=== PATIENT | female | born 1960 | race Caucasian/White ===

== ENCOUNTER 2017-06-20 17:40 | Emergency (ER) | payer MEDICARE ==
[2017-06-20 18:25] LABS: #Eosinphils 0.1 thou/uL (0.0-0.7); #Lymphocytes 1.4 thou/uL (1.20-3.40); #Monocytes 0.7 thou/uL (0.11-0.59); #Neutrophils 4.6 thou/uL (1.40-6.50); %Basophils 0.6 % (0.0-1.0); %Eosinophils 2.1 % (0.0-10.0); %Lymphocytes 20.7 % (21.0-51.0); %Monocytes 10.2 % (0.0-10.0); %Neutrophils 66.3 % (42.0-75.0); Mean Corpuscular HGB CONC 32.5 g/dL (32.0-36.0); Mean Corpuscular Hemoglobin 28.2 pg (27.0-31.0); Mean Corpuscular Volume 86.5 fl (81.0-99.0); Mean Platelet Volume 7.9 fL (7.4-10.4); Platelet Count 298 thou/uL (130-400); RBC Distribution Width 13.8 % (11.5-14.5); Red Blood Cell (RBC) Count 4.97 mill/uL (4.20-5.40)
[2017-06-20 18:47] LABS: ALT (SGPT) 11 U/L (8-55); AST (SGOT) 19 U/L (5-34); Albumin 3.9 g/dL (3.5-5.0); Alkaline Phosphatase 101 U/L (40-150); Anion Gap 13 mmol/L (10-20); BUN (Urea Nitrogen) 9 mg/dL (9.8-20.1); Bilirubin, Total 0.5 mg/dL (0.2-1.2); Calc. Creatinine Clearance 0 mL/min (70-130); Calcium 8.9 mg/dL (7.8-10.44); Carbon Dioxide 25 mmol/L (22-29); Chloride 105 mmol/L (98-107); Estimated GFR-MDRD 79; Globulin 3.4 g/dL (2.4-3.5); Glucose 79 mg/dL (70-105); Potassium 4.2 mmol/L (3.5-5.1); Protein, Total 7.3 g/dL (6.0-8.3); Sodium 139 mmol/L (136-145)
[2017-06-20] MEDS ORDERED: Phenergan/Codeine 10-6.25mg/5ml UDCUP PO SCH (19:15)
[2017-06-20] MEDS ORDERED: Magnesium Sulfate 2 GM/100 ML BAG ONE (19:18)
[2017-06-20] MEDS ORDERED: methylPREDNISolone Sod Succ/PF 125 MG/2 ML VIAL ONE (19:18)
[2017-06-20] MEDS ORDERED: Lorazepam 2 MG/ML VIAL ONE (19:18)
--- NOTE | 2017-06-20 19:27 | RAD ---
FRONTAL VIEW CHEST 06/20/17 No prior comparison. CLINICAL HISTORY: Short of breath new onset. FINDINGS: There is elevation of the right hemidiaphragm. No lobar consolidation, effusion, or pneumothorax. The cardiac silhouette is accentuated by portable technique. IMPRESSION: No focal consolidation. POS: [facility]
--- NOTE | 2017-06-28 17:05 | EKG ---
Test Reason : Blood Pressure : / mmHG Vent. Rate : 094 BPM Atrial Rate : 094 BPM P-R Int : 144 ms QRS Dur : 080 ms QT Int : 358 ms P-R-T Axes : 065 064 065 degrees QTc Int : 447 ms Normal sinus rhythm Normal ECG Confirmed by KELLY WILSON D.O. ([id number]), art editor LUIS ALBERTO WARD ([id number] on 06/28/2017 5:04:17 PM Referred By: Confirmed By:KELLY WILSON D.O.
== END 2017-06-20 21:44 | disposition home or self-care (01) ==
LOC: ERS 17:40
DX: J45.901 Unspecified asthma with (acute) exacerbation (principal); E03.9 Hypothyroidism, unspecified; E66.9 Obesity, unspecified; F32.9 Major depressive disorder, single episode, unspecified; F41.9 Anxiety disorder, unspecified; Z71.6 Tobacco abuse counseling; F17.210 Nicotine dependence, cigarettes, uncomplicated; I10 Essential (primary) hypertension; M48.00 Spinal stenosis, site unspecified
CPT/HCPCS: 71045; 80053; 85025; 87040; 93005; 94640; 94760; 96365; 96375; 99406; J2060; J2930; J3475; J7620

== ENCOUNTER 2017-07-13 16:36 | Emergency (ER) | payer MEDICARE ==
--- NOTE | 2017-07-13 17:51 | RAD ---
PA AND LATERAL CHEST: History: Dyspnea, cough, shortness of breath. FINDINGS: Comparison is made with the exam of 18. The heart size is normal. The lungs are expanded without confluent areas of consolidation, pneumothor aces or pleural effusions. No acute osseous abnormalities are seen. IMPRESSION: No radiographic evidence of acute cardiopulmonary process. POS: [facility]
[2017-07-13] MEDS ORDERED: traMADol HCl 50 MG TAB ONE (18:30)
== END 2017-07-13 18:48 | disposition home or self-care (01) ==
LOC: ERS 16:36
DX: J45.909 Unspecified asthma, uncomplicated (principal); I10 Essential (primary) hypertension; E03.9 Hypothyroidism, unspecified; E66.9 Obesity, unspecified; F41.9 Anxiety disorder, unspecified; F32.9 Major depressive disorder, single episode, unspecified; F17.210 Nicotine dependence, cigarettes, uncomplicated; Z79.891 Long term (current) use of opiate analgesic; Z79.899 Other long term (current) drug therapy
CPT/HCPCS: 71046

== ENCOUNTER 2017-07-23 09:00 | Outpatient (CLI) | payer MEDICARE | END 2017-07-23 09:01 | disposition home or self-care (01) | LOC: BICRAD 09:00 | PROVIDERS: ATTEND Family Medicine | DX: M25.552 Pain in left hip (principal); R10.11 Right upper quadrant pain; J44.9 Chronic obstructive pulmonary disease, unspecified; R05 Cough | CPT/HCPCS: 71046; 72170 ==

== ENCOUNTER 2017-11-09 21:47 | Emergency (ER) | payer MEDICARE ==
[2017-11-09 22:42] LABS: Bilirubin Negative (Negative); Blood, Urine Negative (Negative); Clarity CLOUDY (Clear); Glucose, Urine (Dipstick) Negative (Negative); Leukocyte Negative (Negative); Nitrite Negative (Negative); Protein, Urine (Dipstick) Negative (Neg-Trace); Specific Gravity, Urine 1.025 (1.002-1.036); pH, Urine 5.5 (5.0-9.0)
[2017-11-09 22:49] LABS: Amphetamine Not Detected (NotDetected); Barbiturates Screen Not Detected (NotDetected); Benzodiazepine Screen Detected (NotDetected); Cocaine Metabolite Screen Not Detected (NotDetected); Medtox Control Line Valid? VALID (VALID); Medtox Reader # READER 1; Methadone Not Detected (NotDetected); Methamphetamine Not Detected (NotDetected); Opiate Screen Detected (NotDetected); Oxycodone Screen Not Detected (NotDetected); Phencyclidine (PCP) Not Detected (NotDetected); THC/Cannabinoid Screen Not Detected (NotDetected); Tricyclic Screen Not Detected (NotDetected)
[2017-11-09 23:08] LABS: #Basophils 0.1 thou/uL (0.0-0.2); #Eosinphils 0.1 thou/uL (0.0-0.7); #Lymphocytes 2.6 thou/uL (1.20-3.40); #Monocytes 0.5 thou/uL (0.11-0.59); #Neutrophils 3.9 thou/uL (1.40-6.50); %Basophils 1.1 % (0.0-1.0); %Eosinophils 1.5 % (0.0-10.0); %Lymphocytes 35.8 % (21.0-51.0); %Neutrophils 54.6 % (42.0-75.0); Hemoglobin 14.5 g/dL (12.0-16.0); Mean Corpuscular HGB CONC 33.5 g/dL (32.0-36.0); Mean Corpuscular Hemoglobin 28.8 pg (27.0-31.0); Mean Corpuscular Volume 85.9 fL (78.0-98.0); Mean Platelet Volume 7.8 fL (7.4-10.4); Platelet Count 310 thou/uL (130-400); RBC Distribution Width 12.4 % (11.5-14.5); Red Blood Cell (RBC) Count 5.05 mill/uL (4.20-5.40); White Blood Cell (WBC) Count 7.2 thou/uL (4.8-10.8)
[2017-11-09 23:26] LABS: ALT (SGPT) 10 U/L (8-55); AST (SGOT) 18 U/L (5-34); Acetaminophen Less than 6.0 mcg/mL (10.0-30.0); Albumin 4.1 g/dL (3.5-5.0); Alcohol Less than 10 mg/dL (Less than 10); Alkaline Phosphatase 95 U/L (40-150); Anion Gap 13 mmol/L (10-20); BUN (Urea Nitrogen) 11 mg/dL (9.8-20.1); Bilirubin, Total 0.2 mg/dL (0.2-1.2); CK (CPK) 112 U/L (29-168); Calc. Creatinine Clearance 0 mL/min (70-130); Calcium 9.2 mg/dL (7.8-10.44); Carbon Dioxide 25 mmol/L (22-29); Chloride 107 mmol/L (98-107); Estimated GFR-MDRD 79; Globulin 3.4 g/dL (2.4-3.5); Glucose 105 mg/dL (70-105); Protein, Total 7.5 g/dL (6.0-8.3); Salicylate Less than 8.0 mg/dL (15.0-30.0); Sodium 141 mmol/L (136-145)
[2017-11-09] MEDS ORDERED: Morphine 10 MG/ML VIAL ONE (23:48)
--- NOTE | 2017-11-09 23:50 | CT ---
CT LUMBAR SPINE WITHOUT CONTRAST: Comparison: None. History: Low back pain. Right hip pain. Technique: Multiple contiguous axial images were obtained in a CT of the lumbar spine without contras t. Sagittal and coronal reformats were performed. FINDINGS: The prevertebral soft tissues are unremarkable. There are post-surgical changes in the lower lumbar s pine from laminectomies at L3-4 and L4-5. There is moderate posterior facet arthrosis in the lower teresa mbosacral spine. There is intervertebral disc space narrowing at L5-S1 with surrounding endplate dege nerative changes and vacuum phenomenon. There is no evidence of acute fracture or subluxation. There is mild bony narrowing of the central canal at L5-S1. There is moderate bony narrowing of the n eural foramina at L4-5 and L5-S1. IMPRESSION: 1. Post-surgical and degenerative changes of the lumbar spine without acute osseous abnormality. Plea se note that MRI is a much better modality for evaluation of the nerve roots and central canal as wel l as disc bulging. POS: [facility]
[2017-11-10] MEDS ORDERED: Dexamethasone 10 MG/ML VIAL ONE (00:33)
[2017-11-10] MEDS ORDERED: Ketorolac Tromethamine 60 MG/2 ML VIAL ONE (05:11)
--- NOTE | 2017-11-10 09:05 | MRI ---
PRELIMINARY REPORT/[facility]/EMERGENTY AFTER-HOURS PROCEDURE MR Lumbar Spine Without Intravenous Contrast CLINICAL HISTORY: 57 years old, female; Pain; Low back pain; Prior surgery; Surgery date: 6+ months; Patient HX: Right hip, bilateral leg pain TECHNIQUE: Magnetic resonance images of the lumbar spine without intravenous contrast in multiple planes. COMPARISON: No relevant prior studies available. FINDINGS: Vertebrae: Patient is post lumbar spine surgery with posterior decompression of the lower lumbar spin e. Spinal cord: Normal. Normal signal. Soft tissues: There is subcutaneous posterior back edema from prior intervention DISCS/SPINAL CANAL/NEURAL FORAMINA: L1-L2: Normal. No significant disc disease. No stenosis. L2-L3: Normal. No significant disc disease. No stenosis. L3-L4: At L3-L4 there is a mild disc bulge resulting in mild RIGHT neural foraminal narrowing. L4-L5: At L4-5 there is a broadbase disc bulge resulting in mild bilateral neuroforaminal narrowing. L5-S1: At L5 S1 there is a broad-based disc bulge resulting in mild spinal canal and neural foraminal narrowing. IMPRESSION: Mild multilevel lumbar spine degenerative changes most pronounced at L5 S1. Thank you for allowing us to participate in the care of your patient. Dictated and Authenticated by: Omar Connell MD 11/10/2017 2:43 AM Central Time ([place] & [place]) FINAL REPORT MRI LUMBAR SPINE NONCONTRAST PERFORMED ON AN EMERGENCY BASIS: Date: 11/10/17 Time: 0103 hours FINDINGS/IMPRESSION: Findings agree with the preliminary report by Franc[facility]. No evidence of significant compression of the con us medullaris. Prominent degenerative changes are present, including significant bilateral foraminal stenoses. POS: [facility]
== END 2017-11-10 05:55 | disposition home or self-care (01) ==
LOC: ERS 21:47
DX: M25.562 Pain in left knee (principal); M25.561 Pain in right knee; M54.5 Low back pain; M25.552 Pain in left hip; M25.551 Pain in right hip; J44.9 Chronic obstructive pulmonary disease, unspecified; I10 Essential (primary) hypertension; E03.9 Hypothyroidism, unspecified; E66.9 Obesity, unspecified; K21.9 Gastro-esophageal reflux disease without esophagitis; F41.9 Anxiety disorder, unspecified; F32.9 Major depressive disorder, single episode, unspecified; F17.210 Nicotine dependence, cigarettes, uncomplicated; Z79.899 Other long term (current) drug therapy
CPT/HCPCS: 36415; 72131; 72148; 80053; 80306; 80307; 81003; 82550; 84443; 85025; 85652; 86140; 96372; J1100; J1885; J2270

== ENCOUNTER 2018-07-10 18:11 | Emergency (ER) | payer MEDICARE ==
[2018-07-10] MEDS ORDERED: Ketorolac Tromethamine 30 MG/ML VIAL ONE ×3 (18:55→22:27)
[2018-07-10] MEDS ORDERED: Morphine 4 MG/ML VIAL ONE (18:55)
--- NOTE | 2018-07-10 20:06 | RAD ---
RIGHT FORELEG FOUR VIEWS: 07/10/18 INDICATION: Right leg pain after fall. COMPARISON: None. FINDINGS: No acute fracture or subluxation is evident. IMPRESSION: No acute osseous abnormality. POS: [facility]
[2018-07-10 20:12] LABS: #Basophils 0.1 thou/uL (0.0-0.2); #Eosinphils 0.1 thou/uL (0.0-0.7); #Monocytes 0.4 thou/uL (0.11-0.59); %Basophils 0.9 % (0.0-1.0); %Eosinophils 1.7 % (0.0-10.0); %Lymphocytes 26.7 % (21.0-51.0); %Monocytes 5.4 % (0.0-10.0); %Neutrophils 65.4 % (42.0-75.0); Hemoglobin 14.3 g/dL (12.0-16.0); Mean Corpuscular HGB CONC 32.6 g/dL (32.0-36.0); Mean Corpuscular Hemoglobin 28.9 pg (27.0-31.0); Mean Corpuscular Volume 88.5 fL (78.0-98.0); Mean Platelet Volume 7.9 fL (7.4-10.4); Platelet Count 295 thou/uL (130-400); RBC Distribution Width 12.6 % (11.5-14.5); Red Blood Cell (RBC) Count 4.94 mill/uL (4.20-5.40); White Blood Cell (WBC) Count 7.6 thou/uL (4.8-10.8)
[2018-07-10 20:19] LABS: INR-International Normal Ratio 0.9; PTT 34.8 SEC (22.9-36.1); Prothrombin Time 12.2 SEC (12.0-14.7)
[2018-07-10 20:20] LABS: D-Dimer Test 0.42 *mcg/mL (0.27-0.43)
[2018-07-10 20:29] LABS: ALT (SGPT) 15 U/L (8-55); AST (SGOT) 20 U/L (5-34); Albumin 4.3 g/dL (3.5-5.0); Alkaline Phosphatase 95 U/L (40-150); Anion Gap 14 mmol/L (10-20); BUN (Urea Nitrogen) 16 mg/dL (9.8-20.1); Bilirubin, Total 0.4 mg/dL (0.2-1.2); CK (CPK) 162 U/L (29-168); Calc. Creatinine Clearance 0 mL/min (70-130); Calcium 9.3 mg/dL (7.8-10.44); Carbon Dioxide 25 mmol/L (22-29); Chloride 104 mmol/L (98-107); Estimated GFR-MDRD 59; Globulin 3.3 g/dL (2.4-3.5); Glucose 111 mg/dL (70-105); Magnesium 2.6 mg/dL (1.6-2.6); Potassium 3.9 mmol/L (3.5-5.1); Protein, Total 7.6 g/dL (6.0-8.3); Sodium 139 mmol/L (136-145)
[2018-07-10 20:51] LABS: Bilirubin Small (Negative); Blood, Urine Negative (Negative); Clarity CLEAR (Clear); Glucose, Urine (Dipstick) Negative (Negative); Leukocyte Negative (Negative); Nitrite Negative (Negative); Protein, Urine (Dipstick) Negative (Neg-Trace); Specific Gravity, Urine 1.026 (1.002-1.036)
--- NOTE | 2018-07-10 21:48 | ULT ---
DOPPLER VENOUS ULTRASOUND OF THE RIGHT LOWER EXTREMITY: 07/10/18 INDICATION; Right knee pain. COMPARISON: None. TECHNIQUE: Hobson scale, color doppler and vascular duplex with spectral analysis was performed of the deep venous structures of the right lower extremity. Common femoral vein, superficial femoral vein, popliteal ve in, posterior tibial vein, proximal greater saphenous and profunda veins were assessed. FINDINGS: Normal compression, flow, and augmentation seen within the deep venous structures of the right knee. There is incidental note of a joint effusion within the suprapatellar pouch of the right knee. IMPRESSION: 1. No evidence of DVT to the right lower extremity. 2. Joint effusion within the right knee. POS: [facility]
[2018-07-10] MEDS ORDERED: HYDROcodone/Acetaminophen 10/325 mg Tablet ONE (22:27)
== END 2018-07-10 20:43 | disposition home or self-care (01) ==
LOC: ERS 18:11
DX: B02.9 Zoster without complications (principal); J44.9 Chronic obstructive pulmonary disease, unspecified; I10 Essential (primary) hypertension; E03.9 Hypothyroidism, unspecified; E66.9 Obesity, unspecified; K21.9 Gastro-esophageal reflux disease without esophagitis; F41.9 Anxiety disorder, unspecified; F32.9 Major depressive disorder, single episode, unspecified; F17.210 Nicotine dependence, cigarettes, uncomplicated; Z79.899 Other long term (current) drug therapy
CPT/HCPCS: 80053; 81003; 82550; 83735; 85025; 85379; 85610; 85730; 96374; 96375; 96376; J1885; J2270

== ENCOUNTER 2018-11-20 15:04 | Emergency (ER) | payer MEDICARE ==
[2018-11-20] MEDS ORDERED: Ondansetron PF 4 MG/2 ML Vial ONE (17:48)
[2018-11-20] MEDS ORDERED: Ketorolac Tromethamine 30 MG/ML VIAL ONE (17:48)
[2018-11-20 18:00] LABS: #Basophils 0.1 thou/uL (0.0-0.2); #Eosinphils 0.1 thou/uL (0.0-0.7); #Lymphocytes 2.5 thou/uL (1.20-3.40); #Monocytes 0.5 thou/uL (0.11-0.59); #Neutrophils 4.7 thou/uL (1.40-6.50); %Basophils 0.9 % (0.0-1.0); %Eosinophils 1.3 % (0.0-10.0); %Lymphocytes 31.4 % (21.0-51.0); %Monocytes 6.3 % (0.0-10.0); %Neutrophils 60.1 % (42.0-75.0); Hemoglobin 14.9 g/dL (12.0-16.0); Mean Corpuscular HGB CONC 33.5 g/dL (32.0-36.0); Mean Corpuscular Hemoglobin 30.1 pg (27.0-31.0); Mean Corpuscular Volume 89.9 fL (78.0-98.0); Mean Platelet Volume 8.4 fL (7.4-10.4); Platelet Count 255 thou/uL (130-400); RBC Distribution Width 12.1 % (11.5-14.5); Red Blood Cell (RBC) Count 4.94 mill/uL (4.20-5.40); White Blood Cell (WBC) Count 7.8 thou/uL (4.8-10.8)
[2018-11-20] MEDS ORDERED: Ketorolac Tromethamine 60 MG/2 ML VIAL ONE (18:12)
[2018-11-20 18:22] LABS: ALT (SGPT) 16 U/L (8-55); AST (SGOT) 23 U/L (5-34); Albumin 4.5 g/dL (3.5-5.0); Alkaline Phosphatase 92 U/L (40-150); Anion Gap 15 mmol/L (10-20); BUN (Urea Nitrogen) 12 mg/dL (9.8-20.1); Bilirubin, Total 0.5 mg/dL (0.2-1.2); CK (CPK) 210 U/L (29-168); Calc. Creatinine Clearance 0 mL/min (70-130); Calcium 9.7 mg/dL (7.8-10.44); Carbon Dioxide 23 mmol/L (22-29); Chloride 106 mmol/L (98-107); Estimated GFR-MDRD 75; Glucose 100 mg/dL (70-105); Potassium 4.2 mmol/L (3.5-5.1); Protein, Total 7.5 g/dL (6.0-8.3); Sodium 140 mmol/L (136-145)
--- NOTE | 2018-11-20 18:32 | RAD ---
3 views right foot: 11/20/2018 COMPARISON: None HISTORY: Pain FINDINGS: No fracture or dislocation. There is mild degenerative change at the first metatarsal phala ngeal joint. There is nonspecific dorsal soft tissue swelling involving the forefoot/midfoot, best seen on the lat eral examination. IMPRESSION: Nonspecific soft tissue swelling, which may be related to trauma or infection. No associa kita fracture or dislocation.
--- NOTE | 2018-11-20 18:33 | RAD ---
3 views left foot: 11/20/2018 COMPARISON: None HISTORY: Pain FINDINGS: No displaced fracture or evidence of dislocation. Question mild dorsal soft tissue swelling overlying the midfoot/forefoot on the lateral view, less evident than on the right. IMPRESSION: Findings suggesting mild soft tissue swelling dorsally. No acute fracture or dislocation.
== END 2018-11-20 19:20 | disposition home or self-care (01) ==
LOC: ERS 15:04
DX: L03.115 Cellulitis of right lower limb (principal); J44.9 Chronic obstructive pulmonary disease, unspecified; I10 Essential (primary) hypertension; E66.9 Obesity, unspecified; E03.9 Hypothyroidism, unspecified; K21.9 Gastro-esophageal reflux disease without esophagitis; F41.9 Anxiety disorder, unspecified; F32.9 Major depressive disorder, single episode, unspecified; F17.210 Nicotine dependence, cigarettes, uncomplicated; Z79.899 Other long term (current) drug therapy
CPT/HCPCS: 36415; 80053; 82550; 85025; 86140; 96372; J1885; J2405

== ENCOUNTER 2020-06-24 18:54 | Emergency (ER) | payer MEDICARE ==
--- NOTE | 2020-06-24 21:32 | RAD ---
4 views left knee: 06/24/2020 COMPARISON: 03/27/2019 HISTORY: Knee injury, pain FINDINGS: There is moderate medial compartment narrowing with associated medial osteophyte formation. No knee joint effusion, acute fracture, or evidence of dislocation. IMPRESSION: Medial compartment degenerative change. No acute fracture or dislocation.
[2020-06-24] MEDS ORDERED: Ketorolac Tromethamine 30 MG/ML VIAL ONE (22:10)
== END 2020-06-24 22:29 | disposition home or self-care (01) ==
LOC: ERS 18:54
DX: M25.562 Pain in left knee (principal); Z79.899 Other long term (current) drug therapy; J44.9 Chronic obstructive pulmonary disease, unspecified; I10 Essential (primary) hypertension; E03.9 Hypothyroidism, unspecified; E66.9 Obesity, unspecified; K21.9 Gastro-esophageal reflux disease without esophagitis; F17.210 Nicotine dependence, cigarettes, uncomplicated
CPT/HCPCS: 96372; J1885